=== PATIENT | female | born 1960 | race Caucasian/White ===

== ENCOUNTER → 2019-08-09 | Day surgery (SDC) | payer BC, OTHER ==
[~2019-08-09] MED LIST: ACETAMINOPHEN 1,000 MG/100 ML BTL IVPB ONE; BUPIVACAINE 0.5% W/EPI MPF 30 ML VIAL SQ ONE; CEFAZOLIN 2 Gram 2 GM/50 ML BAG IVPB ONE; FAMOTIDINE 20MG TABLET PO ONE; FENTANYL PF 100MCG/2ML VIAL IV ONE; HYDROCODONE/APAP 7.5/325MG TABLET PO ONE; LIDOCAINE 1% W/EPI 1:100,000 MDV 20 ML VIAL SQ ONE; LIDOCAINE 2% MDV (20MG/ML) 20ML VIAL IV ONE; MECLIZINE 25 MG TABLET PO ONE; METOCLOPRAMIDE 10 MG TABLET PO ONE; MIDAZOLAM HCL 2MG/2ML VIAL IV ONE; PROPOFOL 10 MG/ML VIAL IV ONE; RINGERS SOLUTION,LACTATED 1,000 ML IV ONE
--- NOTE | 2019-08-09 06:42 | History and Physical - Ferro ---
CHIEF COMPLAINT/HISTORY OF CHIEF COMPLAINT: This patient presents with a history of a post lumbar laminectomy radiculopathy. Due to the failure of therapy, a spinal cord stimulator trial was conducted on 07/06/2019 with 75-85% pain control. Due to the failure of all therapies and the success of the trial, the patient presents for implantation of a permanent system. PAST MEDICAL HISTORY: Hypertension, chronic obstructive pulmonary disease, and degenerative arthritis. PAST SURGICAL HISTORY: Ankle surgery, gallbladder surgery, coronary artery stent placement, lumbar spinal surgery, and abdominal surgery. MEDICATIONS ON ADMISSION: List to be provided. ALLERGIES: None. FAMILY/PSYCHOSOCIAL HISTORY: Social history - Caffeine. Family history - Thyroid disease, coronary artery disease, and hypertension. SYSTEMS REVIEW: The patient is appropriate in no acute distress. PHYSICAL EXAMINATION: Height is 5', weight is 170. No vital signs. HEENT: Within normal limits. LUNGS: Clear. HEART: Rapid and regular. ABDOMEN: Nontender. MUSCULOSKELETAL: Examination of the musculoskeletal system shows diffuse tenderness throughout the lumbar spine. Range of motion produces pain into both legs somewhat more right than left. Currently there is no specific motor or sensory abnormalities though there appears to be some weakness into the right lower extremity. Ambulation - No assistive device utilized. NEUROLOGIC: Cranial nerves are intact. 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 PLAN: The patient is here for implantation of a permanent spinal cord stimulator after successful trial and the failure of all other therapies. The procedure, risks, side effects and complications have been reviewed and discussed. The procedure will be an outpatient although an overnight stay can be evaluated. JOB NUMBER: [id number] [facility]
--- NOTE | 2019-08-09 14:17 | Operative Note - Ferro ---
DATE OF SURGERY: 08/09/2019 PREOPERATIVE DIAGNOSIS: POST LUMBAR LAMINECTOMY SYNDROME, ICD-10 CODE M96.L WITH RADICULOPATHY, ICD-10 CODE M54.16 AND M54.17. OPERATION: 1. FLUOROSCOPICALLY GUIDED LEFT EPIDURAL ACCESS T11-T12, PLACEMENT OF SPINAL CORD STIMULATOR LEAD 1 [employer] 16, 6-ELECTRODES POSITIONED LEFT T7. 2. FLUOROSCOPICALLY GUIDED EPIDURAL ACCESS LEFT T12-L1, PLACEMENT OF SPINAL CORD STIMULATOR LEAD 2 [employer] 16, 6-ELECTRODES POSITIONED RIGHT T7. 3. COMPLEX PROGRAMMING LEAD 1 OVER TWENTY MINUTES FOLLOWED BY COMPLEX PROGRAMMING LEAD 2 OVER TWENTY MINUTES. 4. INCISION, SUBCUTANEOUS DISSECTION, ANCHORING LEAD 1 AND LEAD 2 TO SUPRASPINOUS FASCIA WITH [employer] LOCKING ANCHORS AND NONABSORBABLE SUTURE. 5. INCISION, SUBCUTANEOUS DISSECTION, AND CREATION OF SUBCUTANEOUS POUCH LEFT FLANK FOR PLACEMENT OF GENERATOR, A [employer] PROGRAMMABLE RECHARGEABLE WAVEWRITER AT A SITE PICKED BY THE PATIENT. 6. TUNNELLING BETWEEN LEAD POUCH, PLACEMENT OF EXTERNAL PORTION OF LEAD 1 AND LEAD 2 INTO GENERATOR POUCH, EACH LEAD INTERFACED WITH GENERATOR. 7. PLACEMENT OF GENERATOR POUCH, PLACEMENT OF LEADS INTO THE POUCH, CLOSURE OF BOTH INCISIONS STRATAFIX SUTURE 2-0 FASCIA AND 3-0 SKIN. DERMABOND CLOSURE. 8. COMPLEX RECOVERY ROOM PROGRAMMING INTERNAL GENERATOR HOME USE TWO STIMULATORS TWENTY MINUTES. SURGEON: Calixto Pineda D.O. ANESTHESIA: Local sedation. ANESTHESIA PROVIDER: ANDREA Howard CRNA INDICATION: This patient with a history of a post laminectomy radiculopathy has had a successful trial at 75+% pain control. Due to the failure of all therapies and the success of the trial, the patient presents for implantation of a permanent system. PROCEDURE: Intravenous line, vital sign monitoring, IV sedation, prepped and draped, sterile technique. Under imaging from the left the epidural interspace at T11-T12 and T12-L1 are both marked, infiltrated with local, then using two separate curved Epimed needles with loss of resistance the space was accessed at each level, atraumatic. No blood. No CSF. At T11-T12 the spinal cord stimulator Lead 1, a [employer] 16, 6-electrodes were positioned left of midline at T7. With the access at T12-L1, the spinal cord stimulatory Lead 2 also [employer] 16, 6-electrodes was advanced and navigated right of midline upper electrode T7 parallel Lead 1. Complex programming Lead 1 over twenty minutes followed by complex programming of Lead 2 over twenty minutes resulting in a complete pattern of stimulation across the back into the legs. The patient is indicating we hit all of the areas of the pain. She was given the option to implant, continue programming, or remove and she opted to implant. Questions were repeated with the same response. She was re-sedated, the skin above and below the needles were infiltrated, an incision was made and subcutaneous dissection was conducted to the supraspinous fascia. Each of the needles were removed and each Lead was anchored to the supraspinous fascia with a [employer] locking anchor and nonabsorbable suture. At the left flank which was the site picked by the patient for the generator a [employer] programmable rechargeable Wavewriter, skin infiltrated, incision made, and subcutaneous dissection was conducted to form a pouch of suitable size and depth. A tunnelling tool was then used to carry the leads into the generator pouch and then each lead was interfaced with the generator. Antibiotic irrigation, Bovie for hemostasis. The generator and its connections were placed into its own pouch, the leads were placed into their pouch and then both incisions were closed using Stratafix suture 2-0 fascia and 3-0 skin. Dermabond closure was then used to approximate the edges of both wounds. She was transported to the Recovery Room stable. There are no side effects from the procedure or sedation. She has full functionality of her extremities. There was nothing unusual in her presentation. She was monitored until stable. Complex programming of the internal generator performed over twenty minutes in the Recovery Area re-establishing stimulation. The patient and were instructed on the use of the system, provided information on error messaging and then prepared for discharge. DISCHARGE INSTRUCTIONS: 1. The sites will remain clean and dry. No showering or bathing in any way that would disrupt the dressings. If it happens contact the clinic. The Dermabond is water impermeable and will tolerate showering, but not sitting in water. 2. Standard medications will be resumed including the antibiotic Levaquin, she will take 500 mg once a day for fourteen days. 3. Office to contact the patient in 12-24 hours to set up a time in 7-10 days for us to evaluate the sites, until then she is limit bend, lift, push , pull and keep her activities controlled. We will evaluate in the office. She will contact the clinic with any problems. JOB NUMBER: [id number] [facility]
--- NOTE | 2019-08-10 20:33 | RADIOLOGY REPORT ---
EXAMINATION: Thoracic Spine Single View EXAM DATE: 08/09/2019 11:41 AM TECHNIQUE: Single frontal radiograph of the thoracic spine. INDICATION: S/P SCS IMPLANT, LEADS AND GENERATOR COMPARISON: None ENCOUNTER: Initial FINDINGS: Spinal stimulator device overlying the left flank with leads projecting over the thoracic spine would be leads terminating at T6-T7. Surgical clips in the right upper quadrant abdomen suggest previous cholecystectomy. Lungs are well aerated. Heart is borderline enlarged. No suspicious calcifications seen throughout the upper abdomen. IMPRESSION: Spinal stimulator device overlying the left flank with leads terminating in the midthoracic spine as detailed above. Dictated by: Lorne Velarde DO on 08/10/2019 8:25 PM. .
== END | disposition home or self-care (01) ==
LOC: SUR 07:32
PROVIDERS: ATTEND Pain Medicine Interventional Pain Medicine
DX: M96.1 Postlaminectomy syndrome, not elsewhere classified (principal); M54.16 Radiculopathy, lumbar region; M54.17 Radiculopathy, lumbosacral region; J44.9 Chronic obstructive pulmonary disease, unspecified; I50.9 Heart failure, unspecified; I25.10 Atherosclerotic heart disease of native coronary artery without angina pectoris; I10 Essential (primary) hypertension; E78.00 Pure hypercholesterolemia, unspecified; E03.9 Hypothyroidism, unspecified; B19.20 Unspecified viral hepatitis C without hepatic coma; I25.2 Old myocardial infarction; Z95.5 Presence of coronary angioplasty implant and graft
CPT/HCPCS: 72020; 85002; 95972; C1820; C1883; J7120